=== PATIENT | female | born 1985 ===

== ENCOUNTER 2021-01-13 08:01 | Day surgery (SDC) | payer BC ==
[2021-01-08 11:45] LABS: Absolute Lymphocytes (CBC) 2.1 K/uL (0.7-4.9); Basophils % 0.6 % (0-1.3); Hematocrit 43.5 % (36.0-45.0); RBC Red Blood Cell Count 5.09 M/uL (3.86-4.86)
[2021-01-08 11:50] LABS: ALT/SGPT 97 U/L (12-78); AST/SGOT 60 U/L (15-37); Alkaline Phosphatase 62 U/L (45-117); Amylase 84 U/L (25-115); BUN Blood Urea Nitrogen 9 mg/dL (7-18); Bicarbonate 28 mmol/L (21-32); Bilirubin Direct 0.1 mg/dL (0-0.2); Bilirubin Total 0.6 mg/dL (0.2-1.0); Glucose Level 115 mg/dL (74-106); Lipase 151 U/L (73-393); Protein, Total 8.1 g/dL (6.4-8.2); Sodium Level 139 mmol/L (136-145)
[2021-01-13] MEDS ORDERED: NA CHLORIDE 0.9% 1,000 ML ONE (08:44)
[2021-01-13] MEDS ORDERED: CELECOXIB 100 MG CAPSULE PO ONE (08:47)
[2021-01-13] MEDS ORDERED: ACETAMINOPHEN 500 MG TAB PO ONE (08:47)
[2021-01-13] MEDS ORDERED: CIPROFLOXACIN 400mg IV 400 MG/200 ML BAG IV ONE (09:01)
[2021-01-13] MEDS ORDERED: ACETAMINOPHEN 500 MG TAB ONE (09:05)
[2021-01-13] MEDS ORDERED: CELECOXIB 100 MG CAPSULE ONE (09:05)
[2021-01-13] MEDS ORDERED: MIDAZOLAM HCL 2 MG/2 ML INJ ONE ×2 (09:44→11:03)
[2021-01-13] MEDS ORDERED: propofoL 200 MG/20 ML VIAL IV ONE ×2 (09:44→11:03)
[2021-01-13] MEDS ORDERED: GLYCOPYRROLATE 0.2 MG/ML SYR ONE ×2 (09:44→11:03)
[2021-01-13] MEDS ORDERED: FENTANYL CITR 250 MCG/5 ML ONE ×2 (09:45→11:03)
[2021-01-13] MEDS ORDERED: ROCURONIUM 50 MG/5 ML VIAL IV ONE ×2 (09:47→11:03)
[2021-01-13] MEDS ORDERED: ONDANSETRON 4 MG/2 ML VIAL ONE ×3 (09:47→13:45)
[2021-01-13] MEDS ORDERED: dexAMETHasone 10 MG/ML VIAL ONE ×2 (09:48→11:03)
[2021-01-13] MEDS ORDERED: NEOSTIGMINE 1 MG/ML -5 ML ONE (09:51)
[2021-01-13] MEDS ORDERED: LIDOCAINE 1% MPF 5 ML VIAL ONE ×2 (09:52→11:03)
[2021-01-13] MEDS: BUPIVACAINE 0.5% PF 10 ML VIAL ONE ×2 (10:06→10:39)
--- NOTE | 2021-01-13 11:06 | P.BOP ---
Preoperative diagnosis: acute cholecystitis, symptomatic cholelithiasis Postoperative diagnosis: same Primary procedure: Laparoscopic cholecystectomy Estimated blood loss: <10cc Specimen: gb Findings: as above Anesthesia: General Complications: None Transferred to: Recovery Room Condition: Good
[2021-01-13] MEDS ORDERED: Mastisol Adhesive Liq ONE (11:30)
--- NOTE | 2021-01-13 12:09 | DS ---
Diagnosis: Acute cholecystitis, symptomatic cholelithiasis. Procedure: Laparoscopic cholecystectomy. Disposition: Home. Activity: As tolerated. No heavy lifting. Plan: Follow up in my office in 1 week. Call for appointment at [phone]. Keep area dry for 48 vu rs, then may shower. Keep Steri-Strip intact. Medications: Include Cipro 500 p.o. q.12 and Ultracet q.4 hours p.r.n. pain. JE/ITZEL Voice ID: [id number] Report ID: [id number]
--- NOTE | 2021-01-13 12:09 | OP ---
Date of Procedure: 01/13/2021 Surgeon: Ander Richardson MD Preoperative Diagnosis: Acute cholecystitis, symptomatic cholelithiasis. Postoperative Diagnosis: Acute cholecystitis, symptomatic cholelithiasis. Procedure: Laparoscopic cholecystectomy. Anesthesia: General plus local. Indication: This is the case of a female, who comes to us with above diagnosis. Fully explained the benefits, alternatives, and risks of laparoscopic possible open cholecystectomy, which include, but not limited to infection, bleeding, damage to adjacent structures, anesthesia complication, choledoch olithiasis, bile leak, pancreatitis, CT, and even . She also understood this may not relieve an y symptoms. She might need more than one surgical intervention. She understood, signed a consent. Procedure In Detail: The patient was brought to the operating room, placed in supine position. Anes thesia was done without complication. Abdominal area was prepped and draped in usual sterile fashion . Marcaine 0.5% was injected for local anesthetic followed by sharp incision of skin in the infraumb ilical region. Incision was carried down to fascia, which was opened under direct vision. Peritoneu m was encountered and opened under direct vision. Vicryl #1 placed inside the fascia. Millie trocar was carefully introduced. Pneumoperitoneum was obtained. I placed 3 more trocars, 5 mm each one of them, 1 in the epigastric area and 2 in the right upper quadrant using same technique, which consist ed of local anesthetic, sharp incision of the skin, introduction of the trocars under direct vision. This allowed me to put a grasper in the fundus of the gallbladder, another grasper in the infundibul um retracting the gallbladder in the inferolateral fashion, exposing the triangle of Calot and obtain ing critical view. Cystic duct and cystic artery were clearly isolated, freed circumferentially and a connection between those and the gallbladder was clearly identified. I proceeded to ligate those b y using at least 3 clips proximal, 1 clip distal, ligation in middle. Same was done with the cystic artery. No bile leak. No bleeding. The gallbladder was removed from liver using Bovie cauterizer a nd removed from abdominal cavity using an EndoCatch through the umbilical incision. The area was ins pected once again. No bile leak. No bleeding. At that moment, I proceeded to remove the trocars un jodie direct vision. Deflated pneumoperitoneum, closed the fascia with #1 Vicryl. Irrigated subcutaneous tissue, closed that with 3-0 chromic and skin in a subcuticular fa shion with 3-0 chromic and Steri-Strips on top. Sponge count and instrument counts correct. The pat ient tolerated the procedure well. The patient was sent to recovery in stable condition. JE/ITZEL Voice ID: [id number] Report ID: [id number]
[2021-01-13] MEDS ORDERED: HYDROMORPHONE HCL 1 MG/ML INJ ONE (12:24)
[2021-01-13 12:51] VITALS: O2SAT 95
[2021-01-13 13:43] VITALS: BP 118/74; TEMP 97
== END 2021-01-13 13:40 | disposition home or self-care (01) ==
LOC: OR 08:01
PROVIDERS: ATTEND Surgery
PROC: 0FT44ZZ Resection of Gallbladder, Percutaneous Endoscopic Approach (ICD-10-PCS; principal; 2021-01-13 09:15)
DX: K80.12 Calculus of gallbladder with acute and chronic cholecystitis without obstruction (principal); Z20.822 Contact with and (suspected) exposure to COVID-19
CPT/HCPCS: 85025; 80048; 36415; 82150; 84703; 82947 ×2; 80076; 88304; 83690; 47562; U0003; J2704 ×2; J2250 ×2; J3010 ×2; J1100 ×2; J1170; J2710; J7030; J2405 ×3; J0744